=== PATIENT | female | born 1965 | race Caucasian/White ===

== ENCOUNTER 2018-04-24 15:24 | Emergency (ER) | payer SELFPAY ==
[~2018-04-24] VITALS: Ht 165.1 cm; Wt 75.3 kg
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
[2018-04-24] MEDS ORDERED: NALOXONE HCL 0.4 MG/ML AMPUL ONE (18:04)
--- NOTE | 2018-04-24 18:17 | NUR ---
pt woke up after 2 post narcan administration, smiled and asked for food AxOx3.
--- NOTE | 2018-04-24 18:21 | NUR ---
pt given sandwich and drink,
[2018-04-24] MEDS ORDERED: NALOXONE HCL 0.4 MG/ML AMPUL IM ONE (18:30)
--- NOTE | 2018-04-24 19:12 | NUR ---
PT ACTING VERY AGITATED, DR. TROTTER AT BEDSIDE. PT OFFERED CLOTHING, REFUSED
--- NOTE | 2018-04-24 19:23 | NUR ---
OFFERED PT CLOTHING. PT REFUSED, YELLING, AND VERBALLY AGITATED
[2018-04-24] MEDS ORDERED: HALOPERIDOL LACTATE INJ 5 MG/ML VIAL IM ONE (19:30)
[2018-04-24] MEDS ORDERED: diphenhydrAMINE HCL 50 MG/ML VIAL IM ONE (19:30)
[2018-04-24] MEDS ORDERED: LORAZEPAM INJ 2 MG/ML VIAL IM ONE (19:30)
[2018-04-24] MEDS ORDERED: HALOPERIDOL LACTATE INJ 5 MG/ML VIAL ONE (19:40)
[2018-04-24] MEDS ORDERED: diphenhydrAMINE HCL 50 MG/ML VIAL ONE (19:40)
[2018-04-24] MEDS ORDERED: LORAZEPAM INJ 2 MG/ML VIAL ONE (19:41)
--- NOTE | 2018-04-24 19:54 | NUR ---
ATTEMPTED TO START IV AND GET URINE SAMPLE FROM PT. PT REFUSED, AGGRESSIVE AND YELLING. AWARE
--- NOTE | 2018-04-24 20:38 | NUR ---
BLOOD SAMPLE COLLECTED AND SENT TO LAB
[2018-04-24 20:46] LABS: BASOPHILS # (AUTO) 0.1 /CMM (0.0-0.2); EOSINOPHILS % (AUTO) 2.7 % (0.0-6.0); HEMATOCRIT 40 % (33-45); HEMOGLOBIN 13.2 g/dL (11.5-14.8); LYMPHOCYTES # (AUTO) 1.9 /CMM (0.8-4.8); LYMPHOCYTES % (AUTO) 32.5 % (20.0-44.0); MEAN CORPUSCULAR HGB CONC 33 g/dl (31.0-36.0); MEAN CORPUSCULAR VOLUME 89 fL (82-100); MONOCYTES # (AUTO) 0.5 /CMM (0.1-1.30); MONOCYTES % (AUTO) 7.9 % (2.0-12.0); NEUTROPHILS # (AUTO) 3.3 /CMM (1.8-8.9); NEUTROPHILS % (AUTO) 55.9 % (43.0-81.0); PLATELET COUNT (AUTO) 201 /CMM (150-450); RED BLOOD CELL COUNT(AUTO) 4.51 MIL/uL (4.0-5.2); WHITE BLOOD COUNT (AUTO) 5.9 K/uL (4.3-11.0)
[2018-04-24 21:01] LABS: CALCIUM, SERUM 8.6 mg/dL (8.5-10.1); CARBON DIOXIDE 28 mmol/L (21-32); CHLORIDE 108 mmol/L (98-107); CREATININE 0.7 mg/dL (0.6-1.3); GLUCOSE 120 mg/dL (74-106); POTASSIUM 3.8 mmol/L (3.5-5.1); SODIUM SERUM 144 mmol/L (136-145); UREA NITROGEN, BLOOD 11 mg/dL (7-18)
[2018-04-24 21:05] LABS: ALANINE AMINOTRANSFERASE 23 U/L (12-78); ALBUMIN 2.9 g/dL (3.4-5.0); ALCOHOL, BLOOD < 3 mg/dL (0-0); ALKALINE PHOSPHATASE 78 U/L (46-116); ASPARTATE AMINOTRANSFERASE 21 U/L (15-37); BILIRUBIN,DIRECT 0.1 mg/dL (0.0-0.2); BILIRUBIN,TOTAL 0.4 mg/dL (0.2-1.0)
[2018-04-24 21:06] LABS: ACETAMINOPHEN < 2 ug/ml (10-30); SALICYLATE 2.3 mg/dL (2.8-20.0)
--- NOTE | 2018-04-24 21:20 | NUR ---
URINE COLLECTED AND SENT TO LAB
[2018-04-24 21:26] LABS: APPEARANCE,URINE Clear (CLEAR); BILIRUBIN,URINE SMALL (NEGATIVE); BLOOD, URINE Negative Ery/uL (NEGATIVE); COLOR,URINE Yellow (YELLOW); KETONES,URINE Trace (NEGATIVE); LEUKOCYTE ESTERASE ,URINE Negative (NEGATIVE); NITRITE, URINE Negative (NEGATIVE); PROTEIN,URINE Negative (NEGATIVE); UGLUCOSE Negative (NEGATIVE)
[2018-04-24 21:41] LABS: BACTERIA,URINE Rare /HPF (None Seen); RBC,URINE NONE SEEN /HPF (0-2); SQUAMOUS EPITHELIAL CELL,UR Few /HPF (None Seen); WBC,URINE NONE SEEN /HPF (0-3)
--- NOTE | 2018-04-24 21:55 | NUR ---
PT RESTING COMFORTABLY IN BED. EASILY AROUSABLE. VITAL SIGNS STABLE. WILL CONTINUE TO MONITOR
--- NOTE | 2018-04-25 00:56 | NUR ---
PT RESTING COMFORTABLY IN BED. EASILY AROUSABLE. VITAL SIGNS STABLE. WILL CONTINUE TO MONITOR
--- NOTE | 2018-04-25 02:41 | NUR ---
PT AWAKE. RECEIVED SANDWICH AND JUICE PER REQUEST.
--- NOTE | 2018-04-25 05:30 | NUR ---
PT RESTING COMFORTABLY IN BED. WAKES UP WITH PAINFUL STIMULI. VITAL SIGNS STABLE. PT STILL ON MONITOR, WILL CONTINUE TO MONITOR
--- NOTE | 2018-04-25 07:23 | NUR ---
GAVE REPORT TO ANA LAURA PRICE FOR KIM
--- NOTE | 2018-04-25 09:10 | NUR ---
PT RESTING COMFORTABLY IN BED. WAKES UP WITH PAINFUL STIMULI. VITAL SIGNS STABLE. PT ON MONITOR, ON OXYGEN VIA NC AT 2LPM
--- NOTE | 2018-04-25 11:46 | NUR ---
PT AWAKE, CALM AND COOPERATIVE, ASKING FOR FOOD.
--- NOTE | 2018-04-25 12:21 | NUR ---
MEAL TRAY GIVEN TO PT
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
--- NOTE | 2018-04-25 13:14 | NUR ---
PT SEEN BY GILMAR MACHINE ROOM OPERATOR, VITAL SIGNS STABLE, PT AMBULATED TO THE WAITING ROOM WITH HER BELONGINGS.
--- NOTE | 2018-04-25 13:18 | NUR ---
PT ALERT ORIENTED, WENT TO THE RESTROOM, DISCHARGE INSTRUCTIONS PROVIDED, GENETIC PHYSICIAN SPOKE TO THE PT . GIVEN RESOURCES FOR RETIREMENT. PT VERBALIZED UNDERSTANDING.
[2018-04-25 13:20] VITALS: BP 124/63
== END 2018-04-25 13:20 | disposition home or self-care (01) ==
LOC: ER 15:29
DX: T40.601A Poisoning by unspecified narcotics, accidental (unintentional), initial encounter (principal); Z59.0 Homelessness; Y92.89 Other specified places as the place of occurrence of the external cause
CPT/HCPCS: 36415; 70450-TC; 80048-TC; 80076-TC; 80305; 81000-TC; 82962-TC; 85025-TC; G0480; J1200; J1630; J2060; J2310